=== PATIENT | female | born 1965 | race Caucasian/White ===

== ENCOUNTER 2017-11-19 13:14 | Day surgery (SDC) | payer OTHER ==
[2017-11-19] MEDS ORDERED: FENTAnyl 50 MCG/ML VIAL (15:34)
[2017-11-19] MEDS ORDERED: MIDAZOLAM 1 MG/ML 2 ML INJ ×2 (15:35)
== END 2017-11-19 16:28 | disposition home or self-care (01) ==
LOC: GIL 13:14
DX: Z12.11 Encounter for screening for malignant neoplasm of colon (principal); D12.2 Benign neoplasm of ascending colon; D12.0 Benign neoplasm of cecum; K57.90 Diverticulosis of intestine, part unspecified, without perforation or abscess without bleeding; K64.1 Second degree hemorrhoids; E78.00 Pure hypercholesterolemia, unspecified
CPT/HCPCS: 45380; 88305